=== PATIENT | male | born 1975 | race American Indian/Alaskan Native ===

== ENCOUNTER 2017-07-15 23:08 | Emergency (ER) | payer SELFPAY ==
[2017-07-15 23:42] VITALS: BP 121/89; PULSE 92; RESP 18; TEMP 97.6; O2SAT 94
--- NOTE | 2017-07-15 23:55 | C.PDOC ---
History Of Present Illness 89 year old male is brought to the ED by [facility] from [place], because he was wandering the streets. Patient has a Hx with ETOH abuse, patient is foul smelling, with self excoriation on his body due his continuos scratching. Patient has no other physical complaints at the time. Time Seen by Provider: 07/15/17 23:50 Chief Complaint (Nursing): Medical Clearance History Per: EMS History/Exam Limitations: intoxication Onset/Duration Of Symptoms: Hrs Current Symptoms Are (Timing): Still Present Suicide/Self Injury Attempted (Context): None Modifying Factor(s): Alcohol Associated Symptoms: Paranoia. denies: Depression, Suicidal Thoughts, Suicidal Plan Involuntary Hold By: None Recent travel outside of the [place]: No Additional History Per: EMS Past Medical History Reviewed: Historical Data, Nursing Documentation, Vital Signs Vital Signs: Last Vital Signs Temp 97.6 F 07/15/17 23:29 Pulse 92 H 07/15/17 23:29 Resp 18 07/16/17 01:10 BP 121/89 07/15/17 23:29 Pulse Ox 94 L 07/15/17 23:55 - Medical History PMH: No Chronic Diseases Surgical History: No Surg Hx Family History: States: Unknown Family Hx - Social History Hx Alcohol Use: No Hx Substance Use: No - Immunization History Hx Tetanus Toxoid Vaccination: No Hx Influenza Vaccination: No Hx Pneumococcal Vaccination: No Review Of Systems Constitutional: Negative for: Fever, Chills Cardiovascular: Negative for: Chest Pain, Palpitations Respiratory: Negative for: Cough, Shortness of Breath Gastrointestinal: Negative for: Nausea, Vomiting, Abdominal Pain Neurological: Negative for: Weakness, Numbness Psych: Negative for: Depression, Suicidal ideation Physical Exam - Physical Exam Appears: Non-toxic, Other (Bizarre) Skin: Normal Color, Warm, Dry Head: Atraumatic, Normacephalic Oral Mucosa: Moist Neck: Normal ROM, Supple Chest: Symmetrical Cardiovascular: Rhythm Regular, No Murmur Respiratory: Normal Breath Sounds, No Accessory Muscle Use, No Rales, No Rhonchi , No Wheezing Gastrointestinal/Abdominal: Soft, No Tenderness Extremity: Normal ROM, No Pedal Edema, No Calf Tenderness, No Swelling Neurological/Psych: Oriented x3, Normal Speech, Normal Cognition Gait: Steady ED Course And Treatment O2 Sat by Pulse Oximetry: 94 Medical Decision Making Medical Decision Making: homeless, alcohol use today but no intox bizarre, with ? underlying psych why brought from [place] by [facility] if [facility] and pt never here before? Disposition Doctor Will See Patient In The: Office Counseled Patient/Family Regarding: Studies Performed, Diagnosis - Disposition Referrals: Alcoholics Anonymous [Outside] [facility] [Outside] [facility] [Outside] Disposition: HOME/ ROUTINE Disposition Time: 23:55 Condition: GOOD Additional Instructions: seek outpatient psych evaluation as needed Seek AA for alcohol abuse issues. Seek nightly [facility] placement as directed. Instructions: Abuse of Alcohol (ED) Forms: [employer] (Macedonian) - Clinical Impression Clinical Impression: Homeless, Alcohol abuse - Scribe Statement The provider has reviewed the documentation as recorded by the Scribe Ray Chavez All medical record entries made by the Scribe were at my direction and personally dictated by me. I have reviewed the chart and agree that the record accurately reflects my personal performance of the history, physical exam, medical decision making, and the department course for this patient. I have also personally directed, reviewed, and agree with the discharge instructions and disposition.
== END 2017-07-16 00:20 | disposition home or self-care (01) ==
LOC: EDBD 23:08 → C.ER 23:08
DX: F10.10 Alcohol abuse, uncomplicated (principal); Y90.9 Presence of alcohol in blood, level not specified; Z59.0 Homelessness